=== PATIENT | female | born 2000 | race Hispanic/Latino ===

== ENCOUNTER 2022-06-09 12:12 | Emergency (ER) | payer OTHER ==
[2022-06-10] MEDS ORDERED: IBUP-1493 PO (01:00)
== END 2022-06-09 13:40 | disposition left against medical advice (07) ==
LOC: EDH 12:12
DX: Z46.89 Encounter for fitting and adjustment of other specified devices (principal); Z53.21 Procedure and treatment not carried out due to patient leaving prior to being seen by health care provider

== ENCOUNTER 2022-06-09 23:20 | Emergency (ER) | payer OTHER ==
[2022-06-10 00:56] VITALS: BP 137/74
[2022-06-10] MEDS ORDERED: IBUP-1493 PO (01:00)
[2022-06-10] MEDS ORDERED: IBUPROFEN 800 MG TAB PO ONE (01:00)
== END 2022-06-10 01:54 | disposition home or self-care (01) ==
LOC: EDH 23:20
DX: M25.521 Pain in right elbow (principal); R07.89 Other chest pain; Z98.890 Other specified postprocedural states
CPT/HCPCS: 29105; 73060; 73090